=== PATIENT | female | born 1980 | race Hispanic/Latino ===

== ENCOUNTER 2017-10-13 15:49 | Outpatient (CLI) | payer OTHER | END 2017-10-13 15:50 | disposition home or self-care (01) | LOC: LABHHL 15:49 | PROVIDERS: ATTEND Surgery | DX: N63.20 Unspecified lump in the left breast, unspecified quadrant (principal) | CPT/HCPCS: 88305 ==

== ENCOUNTER 2018-01-03 13:54 | Outpatient (CLI) | payer OTHER ==
--- NOTE | 2018-01-03 16:06 | Mammography Report ---
LEFT DIGITAL DIAGNOSTIC MAMMOGRAM: 01/03/18 13:54:00 CLINICAL: For clip placement immediately status post ultrasound biopsy. COMPARISON:10/13/17 FINDINGS: A second biopsy clip is now identified at 9 o'clock approximately 2.5 cm from the nipple. It is adjacent to a previously placed marker. IMPRESSION: Concordant clip placement status post ultrasound biopsy. BI-RADS CATEGORY: 4A--Mildly Suspicious Pathology pending.
--- NOTE | 2018-01-11 09:38 | Ultrasound Report ---
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 Negative for in situ or invasive carcinoma. IMPRESSION: Concordant imaging and pathology.
== END 2018-01-03 13:55 | disposition home or self-care (01) ==
LOC: SPVWC 13:54
PROVIDERS: ATTEND Surgery
DX: N60.82 Other benign mammary dysplasias of left breast (principal); N60.12 Diffuse cystic mastopathy of left breast
CPT/HCPCS: 88305